=== PATIENT | male | born 1980 | race Caucasian/White ===

== ENCOUNTER 2017-11-05 10:05 | Emergency (ER) | payer BC, OTHER ==
[~2017-11-05] VITALS: Ht 167.6 cm; Wt 99.5 kg
[~2017-11-05 10:05] MED LIST: KLNUNK; OLEPTRO; [UNRECOGNIZED DRUG - OTHER]
[2017-11-05 10:11] VITALS: TEMP 36.8; Ht 167.6 cm; Wt 99.5 kg
[2017-11-05] MEDS ORDERED: SODIUM CHLORIDE 0.9% 1000ML 1,000 ML IV STA (10:18)
[2017-11-05] MEDS ORDERED: HYDROmorphone INJ 1 MG/ML SYR IV STA ×2 (10:18→11:03)
[2017-11-05] MEDS ORDERED: CLON0.5T3 PO (10:32)
[2017-11-05] MEDS ORDERED: FLUO10CA48 PO (10:32)
[2017-11-05] MEDS ORDERED: FLUV25TA2 PO (10:32)
[2017-11-05 10:36] LABS: BASO % 0.5 %; BASO ABS # 0.04 K/uL (0-0.2); EOS % 2.2 %; EOS ABS # 0.18 K/uL (0-0.5); HEMATOCRIT 39.6 % (42-52); HEMOGLOBIN 13.3 g/dL (14.0-18.0); LYMPH % 19.5 %; LYMPH ABS # 1.63 K/uL (1.2-3.4); MEAN CELL VOLUME 84.4 fL (80-100); MEAN CORPUSCULAR HEMOGLOBIN 28.4 pg (25-34); MEAN CORPUSCULAR HGB CONC 33.6 g/dl (32-36); MEAN PLATELET VOLUME 10.3 fL (7.4-10.4); MONO % 6.7 %; MONO ABS # 0.56 K/uL (0.11-0.59); NEUT % 69.9 %; NEUT ABS # 5.83 K/uL (1.4-6.5); PLATELET COUNT 278 K/uL (130-400); RED CELL DISTRIBUTION WIDTH CV 13.3 % (11.5-14.5); WHITE BLOOD COUNT 8.34 K/uL (4.8-10.8)
[2017-11-05 10:50] LABS: ISTAT IONIZED CALCIUM 1.21 mmol/l (1.12-1.32); ISTAT POTASSIUM 4.1 mEq/L (3.3-5.0)
--- NOTE | 2017-11-05 11:22 | DIAGNOSTIC IMAGING REPORT ---
L HAND MIN 3 VIEWS ROUTINE, L FOREARM 2 VIEWS ROUTINE HISTORY: 37 years-old Male l hand pain/wrist acute left hand and forearm pain COMPARISON: None available TECHNIQUE: 2 views of the left hand and 2 views of the left forearm FINDINGS: HAND: Acute comminuted intra-articular fracture of the distal radial metaphysis with apex dorsal angulation of 55 degrees, impaction and dorsal displacement of 1.6 cm. Fracture lines extend into the radiocarpal and distal radioulnar joints. Acute fracture of the ulnar styloid with 3 mm lateral displacement. Moderate to extensive soft tissue swelling about the distal forearm and wrist. FOREARM: Distal radial and ulnar fractures as above. The proximal radius and ulna appear intact. No additional acute fracture or dislocation identified. No opaque foreign body. IMPRESSION: 1. Acute comminuted displaced and angulated intra-articular fracture of the distal radius. 2. Acute minimally displaced fracture involves the base of the ulnar styloid. The above report was generated using voice recognition software. It may contain grammatical, syntax or spelling errors. Electronically signed by: Heath Maloney M.D. 11/05/2017 11:21 AM Dictated Date/Time: 11/05/2017 11:18 AM
--- NOTE | 2017-11-05 11:41 | DIAGNOSTIC IMAGING REPORT ---
HEAD WITHOUT CONTRAST (CT) CLINICAL HISTORY: 37 years-old Male with fall . Acute head injury status post fall TECHNIQUE: Multiple axial CT images of the head were obtained without contrast. A dose lowering technique was utilized adhering to the principles of ALARA. COMPARISON: CT cervical spine of same day. FINDINGS: No acute intracranial hemorrhage, midline shift, intracranial mass, hydrocephalus, territorial ischemia or abnormal extra-axial collection. Senescent calcifications of the left lentiform nucleus. The calvarium is intact. Mastoid air cells and middle ear cavities are clear. Partially imaged mild polypoid mucosal thickening about the left maxillary sinus. There is moderate mucosal thickening about the sphenoid and ethmoid sinuses with mild right maxillary sinus disease. Soft tissues and orbits are unremarkable. IMPRESSION: 1. No acute intracranial abnormality or calvarial fracture. 2. Paranasal sinus disease as above. The above report was generated using voice recognition software. It may contain grammatical, syntax or spelling errors. Electronically signed by: Heath Maloney M.D. 11/05/2017 11:39 AM Dictated Date/Time: 11/05/2017 11:37 AM
--- NOTE | 2017-11-05 11:44 | DIAGNOSTIC IMAGING REPORT ---
CERVICAL SPINE W/O CLINICAL HISTORY: 37 years-old Male with fall. Acute neck injury status post fall COMPARISON: CT head and thoracic spine CT of same day. TECHNIQUE: Multiple axial CT images of the cervical spine were obtained without contrast. A dose lowering technique was utilized adhering to the principles of ALARA. FINDINGS: Mastoid air cells and middle ear cavities are clear. Moderate mucosal thickening of the visualized paranasal sinuses. There is no acute fracture or subluxation of the cervical spine. Bone mineralization appears to be within normal limits. Mild multilevel uncovertebral spurring with posterior disc bulge seen at the C5-C6 level. No high-grade central canal narrowing. No definite high-grade foraminal stenosis is identified. Groundglass opacities of the lung apices suggest atelectasis. Heterogeneous thyroid with a millimeter right thyroid nodule. Soft tissues are within normal limits. IMPRESSION: No acute cervical spine fracture or subluxation. The above report was generated using voice recognition software. It may contain grammatical, syntax or spelling errors. Electronically signed by: Heath Maloney M.D. 11/05/2017 11:42 AM Dictated Date/Time: 11/05/2017 11:40 AM
--- NOTE | 2017-11-05 11:46 | DIAGNOSTIC IMAGING REPORT ---
CT (CHEST) THORAX WITH CT DOSE: HISTORY: Trauma. Pain. fall severe back pain TECHNIQUE: Multiaxial CT images of the chest were performed following the intravenous administration of contrast. A dose lowering technique was utilized adhering to the principles of ALARA. COMPARISON: None. FINDINGS: The lungs are clear. The mediastinal vascular structures are within normal limits. No mediastinal or hilar lymphadenopathy. No pleural effusion or pneumothorax. Limited views of the upper abdomen demonstrate a normal liver and spleen. IMPRESSION: No significant abnormality identified within the chest. The above report was generated using voice recognition software. It may contain grammatical, syntax or spelling errors. Electronically signed by: Arias Rouse M.D. 11/05/2017 11:44 AM Dictated Date/Time: 11/05/2017 11:41 AM
--- NOTE | 2017-11-05 11:57 | DIAGNOSTIC IMAGING REPORT ---
THORACIC AND LUMBAR SPINE CT CT DOSE: HISTORY: fall back pain TECHNIQUE: Multiaxial CT images of the thoracic and lumbar spine were performed and reformatted in the sagittal and coronal plane without the use of contrast. A dose lowering technique was utilized adhering to the principles of ALARA. COMPARISON: None. FINDINGS: There is questionable minimal superior endplate indentations at T2 and T3. However, no definite fractures identified. There is no paravertebral soft tissue swelling to suggest an acute process. Alignment of the thoracic spine is intact. Disc spaces are relatively preserved for age. There are few small endplate osteophytes within the lower thoracic spine. No pneumothorax. Paraspinal soft tissues are unremarkable. There is an L2 burst fracture which demonstrates moderate to severe central compression and 3 mm of retropulsion of the posterior superior corner. This results in mild to moderate central canal narrowing at the L2 level. There is associated paravertebral soft tissue swelling at L2. The posterior elements are intact. Disc spaces are preserved. The remaining vertebral bodies show no fractures. The visualized sacrum appears intact. IMPRESSION: 1. Questionable subtle superior endplate compression fractures at T2 and T3. However, no paravertebral soft tissue swelling to suggest an acute process. Therefore, this could be within the range of normal limits. Recommend correlation for pain at this location to assess for an acute injury. 2. L2 burst fracture demonstrating 3 mm of retropulsion with mild to moderate central canal narrowing at this level. Electronically signed by: Roddy Guo M.D. 11/05/2017 11:55 AM Dictated Date/Time: 11/05/2017 11:41 AM
--- NOTE | 2017-11-05 12:08 | DIAGNOSTIC IMAGING REPORT ---
ABDOMEN AND PELVIS CT WITH IV CONTRAST CT DOSE: 4030.31 mGy.cm HISTORY: fall severe lower back pain TECHNIQUE: Multiaxial CT images of the abdomen and pelvis were performed following the use of intravenous contrast. A dose lowering technique was utilized adhering to the principles of ALARA. COMPARISON STUDY: Abdomen and pelvis CT 12/04/2011. FINDINGS: Mild dependent changes seen within the lung bases posteriorly. Comminuted and displaced distal left radius fracture as well as a displaced left ulnar styloid fracture. Nondisplaced fracture within the left inferior pubic ramus. L2 burst fracture is better appreciated on the same day lumbar spine CT. The liver, spleen, pancreas, adrenal glands, and kidneys are unremarkable. No hydronephrosis. Normal gallbladder. No retroperitoneal hematoma or lymphadenopathy. Normal bladder. No bowel wall thickening or obstruction. Moderate well-formed stool within the colon. Surgical clips seen within the left lower quadrant. IMPRESSION: 1. L2 burst fracture which is better appreciated on the same day lumbar spine CT. 2. Nondisplaced left inferior pubic ramus fracture. 3. Displaced distal left radius and ulnar styloid fractures. Electronically signed by: Roddy Guo M.D. 11/05/2017 12:07 PM Dictated Date/Time: 11/05/2017 11:56 AM
[2017-11-05] MEDS ORDERED: FENTANYL CITRATE INJ 50 MCG/1 ML 2 ML VIAL IV STA ×2 (12:09→13:22)
[2017-11-05 12:40] LABS: ALBUMIN 3.7 gm/dl (3.4-5.0); CALCIUM 8.6 mg/dl (8.5-10.1); CREATININE 1.02 mg/dl (0.60-1.40); POTASSIUM 4.6 mmol/L (3.5-5.1); TOTAL PROTEIN 7.2 gm/dl (6.4-8.2)
[2017-11-05 13:11] VITALS: O2SAT 98
--- NOTE | 2017-11-05 13:12 | EMERGENCY ROOM VISIT NOTE ---
History Report prepared by Jessieibramya: Aramis Galicia Under the Supervision of: Dr. Ravi Carr D.O. First contact with patient: 10:09 Chief Complaint: FALL Stated Complaint: FALL/BACK PAIN AND WRIST PAIN History of Present Illness The patient is a 37 year old male who presents to the Emergency Room by EMS with complains of constant lower back pain s/p fall occurring just prior to arrival. He states that he was putting up a swing set, and standing on the top of a 6 ft ladder when he lost his balance. He states that he fell backwards onto the ground, and the swing set fell onto him. The patient does not think that he hit his head, and did not lose consciousness. He believes he fell onto his back. He currently complains of left wrist pain as well. The patient states that his legs currently feel tingly. He was unable to walk following the fall due to his back pain. Pt denies headache, change in vision, fevers, chest pain, shortness of breath, nausea, vomiting, diarrhea, pain with urination. He denies any belly pain. Source of History: patient Onset: Just prior to arrival Position: back (lower) Quality: other (pain s/p fall) Timing: constant Associated Symptoms: No LOC, No headache, No chest pain, No SOB, No nausea, No vomiting, No melena, No diarrhea, No urinary symptoms Note: Positive: left wrist pain. Review of Systems See HPI for pertinent positives & negatives. A total of 10 systems reviewed and were otherwise negative. Past Medical & Surgical Medical Problems: (1) No Known Active Medical Problems Family History No pertinent family history stated. Social History Housing Status: lives with family Occupation Status: employed Current/Historical Medications Scheduled Fluoxetine (Prozac), 1 TAB PO DAILY Fluvoxamine Maleate (Luvox), 1 TAB PO DAILY Scheduled PRN Clonazepam (Klonopin), 0.5 MG PO BID PRN for Anxiety Allergies Coded Allergies: No Known Allergies (Unverified , 11/05/17) Physical Exam Vital Signs Date Time Temp Pulse Resp B/P (MAP) Pulse Ox O2 Delivery O2 Flow Rate FiO2 11/05/17 13:23 75 16 116/79 98 11/05/17 13:12 74 16 118/86 95 Room Air 11/05/17 13:11 98 Nasal Cannula 2.0 11/05/17 12:45 91 16 133/90 98 Nasal Cannula 2.0 11/05/17 12:06 77 16 128/75 98 Room Air 11/05/17 11:10 81 16 120/83 93 Room Air 11/05/17 10:11 36.8 85 20 101/72 93 Room Air Physical Exam GENERAL: Laying on left side, significant distress. HEAD: normal cephalic, atraumatic EYE EXAM: normal conjunctiva, PERRL and EOM's grossly intact OROPHARYNX: no exudate, no erythema, lips, buccal mucosa, and tongue normal and mucous membranes are moist NOSE: No septal hematoma. NECK: supple, no nuchal rigidity, no adenopathy, non-tender CHEST: stable to compression anteriorly and posteriorly LUNGS: clear to auscultation. Normal chest wall mechanics HEART: no murmurs, S1 normal and S2 normal ABDOMEN: abdomen soft, non-tender, normo-active bowel sounds, no masses, no rebound or guarding. PELVIS: stable to compression anteriorly and posteriorly BACK: Acute severe reproducible tenderness to the lower thoracic/lumbar spine. UPPER EXTREMITIES: Obvious deformity of left wrist. Able to wiggle fingers. Radial pulses 2/4. No pain at the elbow or shoulder. LOWER EXTREMITIES: Flexion and extension of the ankles are intact bilaterally. Flexion of bilateral hips with significant pain. NEURO EXAM: Normal sensorium, cranial nerves II-XII grossly intact, normal speech, no gross weakness of arms, GCS 15. Medical Decision & Procedures ER Provider Diagnostic Interpretation: Radiology results as stated below per my review and the radiologist's interpretation: L HAND MIN 3 VIEWS ROUTINE, L FOREARM 2 VIEWS ROUTINE FINDINGS: HAND: Acute comminuted intra-articular fracture of the distal radial metaphysis with apex dorsal angulation of 55 degrees, impaction and dorsal displacement of 1.6 cm. Fracture lines extend into the radiocarpal and distal radioulnar joints. Acute fracture of the ulnar styloid with 3 mm lateral displacement. Moderate to extensive soft tissue swelling about the distal forearm and wrist. FOREARM: Distal radial and ulnar fractures as above. The proximal radius and ulna appear intact. No additional acute fracture or dislocation identified. No opaque foreign body. IMPRESSION: 1. Acute comminuted displaced and angulated intra-articular fracture of the distal radius. 2. Acute minimally displaced fracture involves the base of the ulnar styloid. The above report was generated using voice recognition software. It may contain grammatical, syntax or spelling errors. Electronically signed by: Heath Maloney M.D. 11/05/2017 11:21 AM L HAND MIN 3 VIEWS ROUTINE, L FOREARM 2 VIEWS ROUTINE FINDINGS: HAND: Acute comminuted intra-articular fracture of the distal radial metaphysis with apex dorsal angulation of 55 degrees, impaction and dorsal displacement of 1.6 cm. Fracture lines extend into the radiocarpal and distal radioulnar joints. Acute fracture of the ulnar styloid with 3 mm lateral displacement. Moderate to extensive soft tissue swelling about the distal forearm and wrist. FOREARM: Distal radial and ulnar fractures as above. The proximal radius and ulna appear intact. No additional acute fracture or dislocation identified. No opaque foreign body. IMPRESSION: 1. Acute comminuted displaced and angulated intra-articular fracture of the distal radius. 2. Acute minimally displaced fracture involves the base of the ulnar styloid. The above report was generated using voice recognition software. It may contain grammatical, syntax or spelling errors. Electronically signed by: Heath Maloney M.D. 11/05/2017 11:21 AM A[address]OMEN AND PELVIS CT WITH IV CONTRAST FINDINGS: Mild dependent changes seen within the lung bases posteriorly. Comminuted and displaced distal left radius fracture as well as a displaced left ulnar styloid fracture. Nondisplaced fracture within the left inferior pubic ramus. L2 burst fracture is better appreciated on the same day lumbar spine CT. The liver, spleen, pancreas, adrenal glands, and kidneys are unremarkable. No hydronephrosis. Normal gallbladder. No retroperitoneal hematoma or lymphadenopathy. Normal bladder. No bowel wall thickening or obstruction. Moderate well-formed stool within the colon. Surgical clips seen within the left lower quadrant. IMPRESSION: 1. L2 burst fracture which is better appreciated on the same day lumbar spine CT. 2. Nondisplaced left inferior pubic ramus fracture. 3. Displaced distal left radius and ulnar styloid fractures. Electronically signed by: Roddy Guo M.D. 11/05/2017 12:07 PM CERVICAL SPINE W/O FINDINGS: Mastoid air cells and middle ear cavities are clear. Moderate mucosal thickening of the visualized paranasal sinuses. There is no acute fracture or subluxation of the cervical spine. Bone mineralization appears to be within normal limits. Mild multilevel uncovertebral spurring with posterior disc bulge seen at the C5-C6 level. No high-grade central canal narrowing. No definite high-grade foraminal stenosis is identified. Groundglass opacities of the lung apices suggest atelectasis. Heterogeneous thyroid with a millimeter right thyroid nodule. Soft tissues are within normal limits. IMPRESSION: No acute cervical spine fracture or subluxation. The above report was generated using voice recognition software. It may contain grammatical, syntax or spelling errors. Electronically signed by: Heath Maloney M.D. 11/05/2017 11:[address] (CHEST) THORAX WITH FINDINGS: The lungs are clear. The mediastinal vascular structures are within normal limits. No mediastinal or hilar lymphadenopathy. No pleural effusion or pneumothorax. Limited views of the upper abdomen demonstrate a normal liver and spleen. IMPRESSION: No significant abnormality identified within the chest. The above report was generated using voice recognition software. It may contain grammatical, syntax or spelling errors. Electronically signed by: Arias Rouse M.D. 11/05/2017 11:44 AM HEAD WITHOUT CONTRAST (CT) FINDINGS: No acute intracranial hemorrhage, midline shift, intracranial mass, hydrocephalus, territorial ischemia or abnormal extra-axial collection. Senescent calcifications of the left lentiform nucleus. The calvarium is intact. Mastoid air cells and middle ear cavities are clear. Partially imaged mild polypoid mucosal thickening about the left maxillary sinus. There is moderate mucosal thickening about the sphenoid and ethmoid sinuses with mild right maxillary sinus disease. Soft tissues and orbits are unremarkable. IMPRESSION: 1. No acute intracranial abnormality or calvarial fracture. 2. Paranasal sinus disease as above. The above report was generated using voice recognition software. It may contain grammatical, syntax or spelling errors. Electronically signed by: Heath Maloney M.D. 11/05/2017 11:39 AM THORACIC AND LUMBAR SPINE CT FINDINGS: There is questionable minimal superior endplate indentations at T2 and T3. However, no definite fractures identified. There is no paravertebral soft tissue swelling to suggest an acute process. Alignment of the thoracic spine is intact. Disc spaces are relatively preserved for age. There are few small endplate osteophytes within the lower thoracic spine. No pneumothorax. Paraspinal soft tissues are unremarkable. There is an L2 burst fracture which demonstrates moderate to severe central compression and 3 mm of retropulsion of the posterior superior corner. This results in mild to moderate central canal narrowing at the L2 level. There is associated paravertebral soft tissue swelling at L2. The posterior elements are intact. Disc spaces are preserved. The remaining vertebral bodies show no fractures. The visualized sacrum appears intact. IMPRESSION: 1. Questionable subtle superior endplate compression fractures at T2 and T3. However, no paravertebral soft tissue swelling to suggest an acute process. Therefore, this could be within the range of normal limits. Recommend correlation for pain at this location to assess for an acute injury. 2. L2 burst fracture demonstrating 3 mm of retropulsion with mild to moderate central canal narrowing at this level. Electronically signed by: Roddy Guo M.D. 11/05/2017 11:55 AM THORACIC AND LUMBAR SPINE CT FINDINGS: There is questionable minimal superior endplate indentations at T2 and T3. However, no definite fractures identified. There is no paravertebral soft tissue swelling to suggest an acute process. Alignment of the thoracic spine is intact. Disc spaces are relatively preserved for age. There are few small endplate osteophytes within the lower thoracic spine. No pneumothorax. Paraspinal soft tissues are unremarkable. There is an L2 burst fracture which demonstrates moderate to severe central compression and 3 mm of retropulsion of the posterior superior corner. This results in mild to moderate central canal narrowing at the L2 level. There is associated paravertebral soft tissue swelling at L2. The posterior elements are intact. Disc spaces are preserved. The remaining vertebral bodies show no fractures. The visualized sacrum appears intact. IMPRESSION: 1. Questionable subtle superior endplate compression fractures at T2 and T3. However, no paravertebral soft tissue swelling to suggest an acute process. Therefore, this could be within the range of normal limits. Recommend correlation for pain at this location to assess for an acute injury. 2. L2 burst fracture demonstrating 3 mm of retropulsion with mild to moderate central canal narrowing at this level. Electronically signed by: Roddy Guo M.D. 11/05/2017 11:55 AM Laboratory Results 11/05/17 10:20 Red Blood Count 4.69, Mean Corpuscular Volume 84.4, Mean Corpuscular Hemoglobin 28.4, Mean Corpuscular Hemoglobin Concent 33.6, Mean Platelet Volume 10.3, Neutrophils (%) (Auto) 69.9, Lymphocytes (%) (Auto) 19.5, Monocytes (%) (Auto) 6.7, Eosinophils (%) (Auto) 2.2, Basophils (%) (Auto) 0.5, Neutrophils # (Auto) 5.83, Lymphocytes # (Auto) 1.63, Monocytes # (Auto) 0.56, Eosinophils # (Auto) 0.18, Basophils # (Auto) 0.04 11/05/17 10:20 Test 11/05/17 10:20 11/05/17 10:32 White Blood Count 8.34 K/uL (4.8-10.8) Red Blood Count 4.69 M/uL (4.7-6.1) Hemoglobin 13.3 g/dL (14.0-18.0) Hematocrit 39.6 % (42-52) Mean Corpuscular Volume 84.4 fL (80-100) Mean Corpuscular Hemoglobin 28.4 pg (25-34) Mean Corpuscular Hemoglobin Concent 33.6 g/dl (32-36) Platelet Count 278 K/uL (130-400) Mean Platelet Volume 10.3 fL (7.4-10.4) Neutrophils (%) (Auto) 69.9 % Lymphocytes (%) (Auto) 19.5 % Monocytes (%) (Auto) 6.7 % Eosinophils (%) (Auto) 2.2 % Basophils (%) (Auto) 0.5 % Neutrophils # (Auto) 5.83 K/uL (1.4-6.5) Lymphocytes # (Auto) 1.63 K/uL (1.2-3.4) Monocytes # (Auto) 0.56 K/uL (0.11-0.59) Eosinophils # (Auto) 0.18 K/uL (0-0.5) Basophils # (Auto) 0.04 K/uL (0-0.2) RDW Standard Deviation 40.0 fL (36.4-46.3) RDW Coefficient of Variation 13.3 % (11.5-14.5) Immature Granulocyte % (Auto) 1.2 % Immature Granulocyte # (Auto) 0.10 K/uL (0.00-0.02) Est Creatinine Clear Calc Drug Dose 107.4 ml/min Estimated GFR () 106.8 Estimated GFR (Non- 92.2 BUN/Creatinine Ratio 15.2 (10-20) Calcium Level 8.6 mg/dl (8.5-10.1) Total Bilirubin 0.5 mg/dl (0.2-1) Direct Bilirubin mg/dl (0-0.2) Aspartate Amino Transf (AST/SGOT) 34 U/L (15-37) Alanine Aminotransferase (ALT/SGPT) 37 U/L (12-78) Alkaline Phosphatase 90 U/L (45-117) Total Protein 7.2 gm/dl (6.4-8.2) Albumin 3.7 gm/dl (3.4-5.0) Lipase 84 U/L (73-393) Chemistry Specimen Hemolysis Bedside Hemoglobin 13.6 g/dl (14.0-18.0) Bedside Hematocrit 40 % (42-52) Bedside Sodium 142 mEq/L (135-144) Bedside Potassium 4.1 mEq/L (3.3-5.0) Bedside Chloride 103 mEq/L (101-112) Bedside Total CO2 27 mEq/l (24-31) Anion Gap 18.0 mmol/L (16-25) Bedside Blood Urea Nitrogen 17 mg/dl (7-18) Bedside Creatinine 1.0 mg/dl (0.6-1.3) Bedside Glucose (other) 104 mg/dl (70-99) Bedside Ionized Calcium (Sachi) 1.21 mmol/l (1.12-1.32) Laboratory results per my review. Medications Administered Medications (Trade) Dose Ordered Sig/Chelo Route Start Time Stop Time Status Last Admin Dose Admin Hydromorphone HCl (Dilaudid Inj) 1 mg NOW STAT IV 11/05/17 10:18 11/05/17 10:23 DC 11/05/17 10:31 1 MG Sodium Chloride 1,000 ml @ 999 mls/hr Q1H1M STAT IV 11/05/17 10:18 11/05/17 11:18 DC 11/05/17 10:32 999 MLS/HR Hydromorphone HCl (Dilaudid Inj) 1 mg NOW STAT IV 11/05/17 11:03 11/05/17 11:04 DC 11/05/17 11:07 1 MG Fentanyl Citrate (Fentanyl Inj) 50 mcg NOW STAT IV 11/05/17 12:09 11/05/17 12:10 DC 5/9/18 12:24 50 MCG Fentanyl Citrate (Fentanyl Inj) 50 mcg NOW STAT IV 11/05/17 13:22 11/05/17 13:23 DC 11/05/17 13:30 50 MCG ED Course ED COURSE: Vital signs were reviewed and showed normal vitals. The patients medical record was reviewed The above diagnostic studies were performed and reviewed. ED treatments and interventions as stated above. 1012: The patient was evaluated in room B4B. A complete history and physical examination was performed. 1018: Ordered Sodium Chloride 1000 ml @ 999 mls/hr IV, Dilaudid Inj 1 mg IV. 1103: Ordered Dilaudid Inj 1 mg IV. 1209: Ordered Fentanyl Inj 50 mcg IV. 1235: Dr. Burleson and Lester Mcdermott PA-C have reviewed the images. Lester Mcdermott PA-C will come evaluate the patient's wrist in the ED. Dr. Burleson recommends transfer to [place] for unstable vertebral fracture. 1240: The patient is complaining that his left wrists feels like it falling asleep. 1255: Lester Mcdermott PA-C of Orthopedics is at bedside. 1301: I spoke with Lester Mcdermott PA-C. Ambulance is 10 minutes out, and he does not want to delay transport. He feels the patient would be stable enough for transfer at this time. 1305: Upon reevaluation, the patient is resting. I discussed my findings with the patient and he understands and agrees with the treatment plan. Based on the patients age, coexisting illnesses, exam and lab findings the decision to transfer to [facility]. The patient remained stable while under my care. The patient will be transferred to [place] by ground. 1330: The patient would like to take off his wrist splint. It was removed, and he was told to hold his arm still against his body. Medical Decision Differential diagnoses include major intracranial, cervical, spinal, thoracic, abdominal, pelvic and neurologic injury. Fracture, contusion, sprain, strain, laceration, abrasions included as well. Patient is a 37-year-old male that fell from a height of 68 feet onto his back. He denies any loss consciousness. Complaining of severe pain in his lower back. Found to have a L3 burst fracture after zendejas scan. He also had a severe left wrist deformity. Radial pulses intact. He was able to move his fingers. He was evaluated by orthopedics at bedside. They recommended transfer due to the L3 burst fracture. They were initially going to set the left wrist but due to EMS presenting within 10 minutes for transfer they recommended just placement of the splint and no reduction as this would delay transfer and he felt he was stable to be transferred at this time. Patient was given to doses of IV Dilaudid along with 2 additional doses of IV fentanyl. He did slightly become hypoxic and was placed on nasal cannula. CBC along with BMP, LFTs, bilirubin and lipase is unremarkable. Patient was updated at bedside and transferred to [facility] following multiple dose of IV narcotics and evaluation by orthopedics. PET scan was otherwise unremarkable with exception of some questionable T2-T3 superior endplate fractures. Medication Reconcilliation Current Medication List: was personally reviewed by me Blood Pressure Screening Patient's blood pressure: Normal blood pressure Blood pressure disposition: Did not require urgent referral Consults Time Called: 1210 Consulting Physician: Dr. Satya Mcdermott PA-C - Orthopedics Returned Call: 1215 I reviewed the patient's case with Dr. Burleson and Lester Mcdermott PA-C. They will review the images and call back. 1235: Dr. Burleson and Lester Mcdermott PA-C have reviewed the images. Lester Mcdermott PA-C will come evaluate the patient's wrist in the ED. Dr. Burleson recommends transfer to [place] for unstable vertebral fracture. Additional Consults: Time Called: 1242 Consulted Physician: Dr. Cool - [facility] Returned Call: 1247 Additional Comments: I reviewed the patient's case with Dr. Cool. The patient will be transferred to [facility] by ground. Impression Primary Impression: L2 vertebral fracture Additional Impression: Fracture of left radius and ulna Critical Care I have personally spent 35 minutes of critical care time in the direct management of this patient. This includes bedside care, interpretation of diagnostic studies, and testing, discussion with consultants, patient, and family members, and other required patient management activities. This 35 minutes is in excess of all separately billable procedures. Scribe Attestation The scribe's documentation has been prepared under my direction and personally reviewed by me in its entirety. I confirm that the note above accurately reflects all work, treatment, procedures, and medical decision making performed by me. Departure Information Dispostion Transfer Acute Care Facility ([facility] by ground. ) Referrals No Doctor, Assigned (PCP) Patient Instructions My [facility] Problem Qualifiers Primary Impression: L2 vertebral fracture Encounter type: initial encounter Fracture type: closed Fracture morphology : burst- unstable Qualified Codes: S32.022A - Unstable burst fracture of second lumbar vertebra, initial encounter for closed fracture Additional Impression: Fracture of left radius and ulna Encounter type: initial encounter Fracture type: closed Qualified Codes: S52.92XA - Unspecified fracture of left forearm, initial encounter for closed fracture; S52.202A - Unspecified fracture of shaft of left ulna, initial encounter for closed fracture
[2017-11-05 13:23] VITALS: BP 116/79; PULSE 75; O2SAT 98
--- NOTE | 2017-11-05 22:11 | CONSULTATION REPORT ---
DATE OF CONSULTATION: 11/05/2017 REASON FOR CONSULT: Left wrist fracture. HISTORY OF PRESENT ILLNESS: The patient is a 37-year-old white male that had an injury after a fall. Apparently, the patient was building a swing set and was at one point at least 6-10 feet off the ground on a ladder when he lost his balance. He fell backwards on the ground. At that point, he had severe pain in his left wrist and that his legs felt tingly. He was unable to walk following the fall due to back pain and he was brought to the Emergency Room. There was no loss of consciousness and denies any kind of shortness of breath, chest pain, or lightheadedness prior to or after the fall. He was brought to the ED. He was seen by the staff and x-rays were taken. He had a displaced distal radius fracture and was also found to have a L2 burst fracture with 3 mm of retropulsion with [id number] central canal narrowing at that level via CT scan. X-rays of the spine were reviewed with Dr. Burleson who at that time felt the patient need to be transferred for further care to tertiary care facility for his burst fracture. I discussed the case briefly with Dr. Johnson and plans were to evaluate the wrist and possibly try and reduce the fracture as best as possible at that time. PAST MEDICAL HISTORY: History of renal calculi. PAST SURGICAL HISTORY: None. SOCIAL HISTORY: The patient is a nonsmoker and is . MEDICATIONS: Klonopin 0.5 mg p.o. b.i.d., Prozac 1 tab p.o. daily, Luvox 1 tab p.o. daily. ALLERGIES: NKDA. REVIEW OF SYSTEMS: As per Emergency Room. PHYSICAL EXAMINATION: On examination, the patient is lying supine and his left arm and wrist are elevated on a blanket and a rolled towel. Current examination is limited to the wrist. His wrist has a deformity noted and is tender and swollen over the wrist itself. He has a capillary refill less than 2 seconds, fingers feel warm, he has some slightly decreased sensation in his fingers and is able to move the fingers at this time. I noticed some small abrasions of the forearm more proximally but most of discomfort is at the distal portion of the radius and ulna. Elbow is NT. ASSESSMENT: 1. Comminuted intra-articular distal radius fracture, minimally displaced of a fracture of the ulnar styloid. 2. Noted L2 burst fracture. PLAN: At the time I had come into the room to examine the patient, plans were initially to try and do a general reduction of the wrist; however, at that point in time nursing came in and said that the transportation for the patient down to [facility] was going to be readily available in the next 5-10 minutes and in the interest of time to expedite his care, which was discussed with the patient and his , we had one of the cast techs in the ER place a volar splint to the left wrist and plans were to have his wrist as well as his L2 burst fracture taken care of down at the [facility]. The patient was in agreement of that and he was then shortly transferred to [facility] for further care. (After reviewing Dr Carr's ER note, the patient apparently did not like the splint and removed it prior to transfer and was going to keep the arm elevated and close to his body for the transport to [facility].) ZHAO
== END 2017-11-05 13:44 | disposition short-term general hospital (02) ==
LOC: EDBD 10:05 → C.EDB 10:07
DX: S32.022A Unstable burst fracture of second lumbar vertebra, initial encounter for closed fracture (principal); S52.572A Other intraarticular fracture of lower end of left radius, initial encounter for closed fracture; S52.202A Unspecified fracture of shaft of left ulna, initial encounter for closed fracture; W11.XXXA Fall on and from ladder, initial encounter; Y93.89 Activity, other specified; Y99.8 Other external cause status; Z87.442 Personal history of urinary calculi